=== PATIENT | female | born 1995 | race Caucasian/White ===

== ENCOUNTER 2016-12-29 22:51 | Emergency (ER) | payer OTHER | END 2016-12-30 00:45 | disposition home or self-care (01) | LOC: CFTX 22:51 → CED 22:51 → CFTX 23:59 | DX: J06.9 Acute upper respiratory infection, unspecified (principal); K08.89 Other specified disorders of teeth and supporting structures; H65.91 Unspecified nonsuppurative otitis media, right ear | CPT/HCPCS: 87651; 99283 ==